=== PATIENT | male | born 1955 | race Caucasian/White ===

== ENCOUNTER 2020-01-09 04:08 | Emergency (ER) | payer OTHER ==
[2020-01-09] MEDS ORDERED: Albuterol/Ipratropium 3.0-0.5 MG/3 ML Neb Soln NEB ONE (04:47)
--- NOTE | 2020-01-09 04:47 | EDM.PDOC ---
<Max Gill - Last Filed: 01/09/20 07:14> ED HPI GENERAL MEDICAL PROBLEM - General Chief Complaint: Cardiovascular Problem Stated Complaint: SOB Time Seen by Provider: 01/09/20 04:36 Source of Information: Reports: Patient History Limitations: Reports: No Limitations - History of Present Illness INITIAL COMMENTS - FREE TEXT/NARRATIVE: This is a 64-year-old male. Back in July he had a cold along with his lasted for about 2 weeks and ever since that time he has been having episodes of being short of breath. He was given an inhaler by 1 of his doctors when he gets short of breath and uses it seems to help. He has not been running any particular fever. He does not notice any wheezing when he gets short of breath. And he feels like over the last week or so the shortness of breath is been getting worse. He is also had a cough since July that sometimes is productive. He has had no fever. This morning when he awoke around 3 AM he felt like he was really short of breath and he used his inhaler and then he starts coming to the ER he starts feeling better and is no longer short of breath. He does not have any history of smoking. He is not aware of having been exposed to the COVID virus he thinks in July he actually had the COVID virus though he was never tested. He does get short of breath he also has tightness in his chest. He says he does not sweat it does not go into his jaw or down his arm he is never nauseated or vomited from it. The patient has never been diagnosed with asthma or lung related problems. Patient arrived to the ER his pulse ox was 92 to 94% on room air. He did not appear to be in any distress or having a difficult time in breathing. Left Upper Chest Pain Score (Numeric/FACES): 1 - Related Data Allergies Allergy/AdvReac Type Severity Reaction Status Date / Time Penicillins Allergy Severe Hives Verified 01/09/20 04:21 Home Meds: Home Meds Albuterol [Proventil Neb Soln] 3 ml NEB Q6HR PRN 01/09/20 [History] Azithromycin [Zithromax] 250 mg PO DAILY #4 tab 01/09/20 [Rx] Past Medical History - Past Health History Medical/Surgical History: Denies Medical/Surgical History HEENT History: Reports: Impaired Vision Social & Family History - Family History Family Medical History: Noncontributory - Tobacco Use Smoking Status *Q: Never Smoker Second Hand Smoke Exposure: No - Caffeine Use Caffeine Use: Reports: Coffee - Recreational Drug Use Recreational Drug Use: No ED ROS GENERAL - Review of Systems Review Of Systems: See Below Constitutional: Denies: Fever, Chills HEENT: Reports: No Symptoms Respiratory: Reports: Shortness of Breath, Cough. Denies: Wheezing Cardiovascular: Reports: Chest Pain Endocrine: Reports: No Symptoms GI/Abdominal: Reports: No Symptoms : Reports: No Symptoms Musculoskeletal: Reports: No Symptoms Skin: Reports: No Symptoms Neurological: Reports: No Symptoms Psychiatric: Reports: No Symptoms Hematologic/Lymphatic: Reports: No Symptoms ED EXAM, GENERAL - Physical Exam Exam: See Below Exam Limited By: No Limitations General Appearance: Alert, WD/WN, No Apparent Distress Eye Exam: Bilateral Eye: Normal Inspection Ears: Normal External Exam, Normal Canal, Normal TMs Nose: Normal Inspection Throat/Mouth: Normal Inspection, Normal Lips, Normal Oropharynx, Normal Voice, No Airway Compromise Head: Normocephalic Neck: Supple Respiratory/Chest: No Respiratory Distress, Lungs Clear, Normal Breath Sounds. No: Crackles, Rales, Rhonchi, Wheezing Cardiovascular: Regular Rate, Rhythm, No Murmur GI/Abdominal: Soft Back Exam: Full Range of Motion Extremities: Normal Inspection, Normal Range of Motion. No: Pedal Edema Neurological: Alert, Oriented Psychiatric: Normal Affect, Normal Mood Skin Exam: Warm, Dry EKG INTERPRETATION EKG Date: 01/09/20 Time: 04:55 EKG Interpretation Comments: EKG shows normal sinus rhythm rate of [address] or T wave changes and no ischemia noted Course - Radiology Interpretation Free Text/Narrative:: X-ray shows diffuse densities in both of his lung duval the right upper is worse and they cannot rule out metastatic disease. - Re-Assessments/Exams Free Text/Narrative Re-Assessment/Exam: 01/09/20 07:06 To the patient and the regarding the x-ray results and the normal white count. We are waiting for the COVID test and a just came back as negative. We will go to do a CT scan of his chest with contrast thinking possibly this is metastatic disease rather than a pneumonia. The patient is not in acute distress when he sleeps his up pulse ox dropped down to 89 but when he is awake is 92-94. He does not look toxic or septic. Spoke to the patient regarding do a CT scan with contrast of his chest. We obviously know something is going on with his chest we just have to figure out exactly what it is. 01/09/20 07:[address] Lo regarding the patient and he will take over the patient's care. Departure - Departure Disposition: Home, Self-Care 01 Clinical Impression: Lung mass Pneumonia Qualifiers: Pneumonia type: due to unspecified organism Laterality: bilateral Lung location: unspecified part of lung Qualified Code(s): J18.9 - Pneumonia, unspecified organism Prescriptions: Azithromycin [Zithromax] 250 mg PO DAILY #4 tab Referrals: PCP,None [Primary Care Provider] - Lorri Fragoso PA-C [Physician Data Services Developer] - 3 Days Forms: ED Department Discharge Additional Instructions: Use the albuterol 2 puffs every 6 hours as needed for shortness of breath. Take zithromax daily until gone. You can get the prescription tomorrow. Follow up with Lorri Fragoso in our clinic. She will need to coordinate your further care. Please return if you are worse. Sepsis Event Note (ED) - Evaluation Sepsis Screening Result: No Definite Risk <Max Lo - Last Filed: 01/09/20 08:34> Course - Vital Signs Last Recorded V/S: Last Vital Signs Temp 97.1 F 01/09/20 04:16 Pulse 101 H 01/09/20 04:16 Resp 22 H 01/09/20 04:16 BP 138/75 01/09/20 04:16 Pulse Ox 92 L 01/09/20 05:00 - Orders/Labs/Meds Orders: Active Orders 24 hr Category Date Time Status EKG 12 Lead [EKG Documentation Completion] [RC] STAT Care 01/09/20 04:43 Active RT Aerosol Therapy [RC] ASDIRECTED Care 01/09/20 04:47 Active RT Post Treatment Assessment [RC] Click to Edit Care 01/09/20 08:24 Ordered RT Pre-Treatment Assessment [RC] Click to Edit Care 01/09/20 08:24 Ordered Albuterol [Proventil HFA] Med 01/09/20 08:24 Once See Dose Instructions INH ONETIME ONE Azithromycin [Zithromax] Med 01/09/20 08:24 Once 500 mg PO ONETIME ONE Sodium Chloride 0.9% [Saline Flush] Med 01/09/20 07:20 Active 10 ml FLUSH ONETIME PRN Medication Orders Sodium Chloride (Saline Flush) 10 ml FLUSH ONETIME PRN PRN Reason: Keep Vein Open Last Admin: 01/09/20 07:47 Dose: 10 ml Documented by: MARYAN Labs: Laboratory Tests 01/09/20 01/09/20 01/09/20 Range/Units 04:58 04:58 04:58 WBC 8.07 (4.23-9.07) K/mm3 RBC 5.31 (4.63-6.08) M/mm3 Hgb 15.1 (13.7-17.5) gm/dl Hct 45.2 (40.1-51.0) % MCV 85.1 (79.0-92.2) fl MCH 28.4 (25.7-32.2) pg MCHC 33.4 (32.2-35.5) g/dl RDW Std Deviation 43.5 (35.1-43.9) fL Plt Count 204 (163-337) K/mm3 MPV 9.2 L (9.4-12.3) fl Neut % (Auto) 71.4 H (34.0-67.9) % Lymph % (Auto) 15.5 L (21.8-53.1) % Lamb % (Auto) 9.5 (5.3-12.2) % Eos % (Auto) 3.3 (0.8-7.0) Baso % (Auto) 0.2 (0.1-1.2) % Neut # (Auto) 5.75 H (1.78-5.38) K/mm3 Lymph # (Auto) 1.25 L (1.32-3.57) K/mm3 Lamb # (Auto) 0.77 (0.30-0.82) K/mm3 Eos # (Auto) 0.27 (0.04-0.54) K/mm3 Baso # (Auto) 0.02 (0.01-0.08) K/mm3 Sodium 142 (136-145) mEq/L Potassium 3.8 (3.5-5.1) mEq/L Chloride 105 (98-107) mEq/L Carbon Dioxide 26 (21-32) mEq/L Anion Gap 14.8 (5-15) BUN 23 H (7-18) mg/dL Creatinine 1.3 (0.7-1.3) mg/dL Est Cr Clr Drug Dosing 60.83 mL/min Estimated GFR (MDRD) 56 (>60) mL/min BUN/Creatinine Ratio 17.7 (14-18) Glucose 98 (80-115) mg/dL Calcium 8.9 (8.5-10.1) mg/dL Total Bilirubin 0.5 (0.2-1.0) mg/dL AST 32 (15-37) U/L ALT 39 (16-63) U/L Alkaline Phosphatase 134 H (46-116) U/L Troponin I < 0.017 (0.00-0.056) ng/mL NT-Pro-B Natriuret Pep 12 (0-125) pg/mL Total Protein 6.6 (6.4-8.2) g/dl Albumin 3.2 L (3.4-5.0) g/dl Globulin 3.4 gm/dL Albumin/Globulin Ratio 0.9 L (1-2) SARS Virus RNA (PCR) (NEGATIVE) 01/09/20 Range/Units 05:49 WBC (4.23-9.07) K/mm3 RBC (4.63-6.08) M/mm3 Hgb (13.7-17.5) gm/dl Hct (40.1-51.0) % MCV (79.0-92.2) fl MCH (25.7-32.2) pg MCHC (32.2-35.5) g/dl RDW Std Deviation (35.1-43.9) fL Plt Count (163-337) K/mm3 MPV (9.4-12.3) fl Neut % (Auto) (34.0-67.9) % Lymph % (Auto) (21.8-53.1) % Lamb % (Auto) (5.3-12.2) % Eos % (Auto) (0.8-7.0) Baso % (Auto) (0.1-1.2) % Neut # (Auto) (1.78-5.38) K/mm3 Lymph # (Auto) (1.32-3.57) K/mm3 Lamb # (Auto) (0.30-0.82) K/mm3 Eos # (Auto) (0.04-0.54) K/mm3 Baso # (Auto) (0.01-0.08) K/mm3 Sodium (136-145) mEq/L Potassium (3.5-5.1) mEq/L Chloride (98-107) mEq/L Carbon Dioxide (21-32) mEq/L Anion Gap (5-15) BUN (7-18) mg/dL Creatinine (0.7-1.3) mg/dL Est Cr Clr Drug Dosing mL/min Estimated GFR (MDRD) (>60) mL/min BUN/Creatinine Ratio (14-18) Glucose (80-115) mg/dL Calcium (8.5-10.1) mg/dL Total Bilirubin (0.2-1.0) mg/dL AST (15-37) U/L ALT (16-63) U/L Alkaline Phosphatase (46-116) U/L Troponin I (0.00-0.056) ng/mL NT-Pro-B Natriuret Pep (0-125) pg/mL Total Protein (6.4-8.2) g/dl Albumin (3.4-5.0) g/dl Globulin gm/dL Albumin/Globulin Ratio (1-2) SARS Virus RNA (PCR) Negative (NEGATIVE) Meds: Medications Generic Name Dose Route Start Last Admin Trade Name Halie PRN Reason Stop Dose Admin Sodium Chloride 10 ml 01/09/20 07:20 01/09/20 07:47 Saline Flush FLUSH 10 ml ONETIME PRN Administration Keep Vein Open Discontinued Medications Generic Name Dose Route Start Last Admin Trade Name Freq PRN Reason Stop Dose Admin Albuterol/Ipratropium 3 ml 01/09/20 04:47 01/09/20 05:00 Duoneb 3.0-0.5 Mg/3 Ml NEB 01/09/20 04:48 3 ml ONETIME ONE Administration Iopamidol 100 ml 01/09/20 07:20 01/09/20 07:47 Isovue-300 (61%) IVPUSH 01/09/20 07:21 100 ml ONETIME ONE Administration - Re-Assessments/Exams Free Text/Narrative Re-Assessment/Exam: 01/09/20 08:[address] Gill. The CT shows findings which are felt compatible with right sided lung mass extending into the mediastinum as well as numerous nodular areas of metastasis throughout both lungs and possible lymphangitic spread of metastasis. Other areas of consolidation within the right upper and right lower lung which could represent superimposed pneumonia upon the metastatic disease. Small indeterminate lesion within the right kidney. I let the patient know. I will have him see one of our providers to coordinate care. I will also give him some albuterol and zithromax for the pneumonia. Departure - Departure Time of Disposition: 08:30 Condition: Good Sepsis Event Note (ED) - Focused Exam Vital Signs: Vital Signs Temp Pulse Resp BP Pulse Ox Pulse Ox 01/09/20 05:00 92 L 01/09/20 04:16 97.1 F 101 H 22 H 138/75 92 L - My Orders Last 24 Hours: My Active Orders 01/09/20 08:24 RT Post Treatment Assessment [RC] Click to Edit RT Pre-Treatment Assessment [RC] Click to Edit Albuterol [Proventil HFA] See Dose Instructions INH ONETIME ONE Azithromycin [Zithromax] 500 mg PO ONETIME ONE - Assessment/Plan Last 24 Hours: My Active Orders 01/09/20 08:24 RT Post Treatment Assessment [RC] Click to Edit RT Pre-Treatment Assessment [RC] Click to Edit Albuterol [Proventil HFA] See Dose Instructions INH ONETIME ONE Azithromycin [Zithromax] 500 mg PO ONETIME ONE
--- NOTE | 2020-01-09 05:55 | CR ---
Chest: 2 views of the chest were obtained. Comparison: No prior chest images available. Diffuse increased density throughout both sides of the chest. More consolidation is noted within the right upper lung. Heart size and mediastinum are normal. Bony structures are unremarkable. Impression: 1. Diffuse increased density on both sides of the chest, worse within the right upper chest. Difficult to exclude metastatic disease. Findings may also represent diffuse bronchopneumonia with more consolidation of alveolar pneumonia within the right upper lung. Atypical infections are also within the differential. Diagnostic code #3 This report was dictated in MDT
[2020-01-09] MEDS ORDERED: Iopamidol 612 MG/ML 100 ML Bottle IVPUSH ONE (07:20)
[2020-01-09] MEDS ORDERED: Sodium Chloride 0.9% 10 ML Syringe FLUSH PRN (07:20)
--- NOTE | 2020-01-09 08:09 | CT ---
CT chest Technique: Multiple axial sections through the chest were obtained. Intravenous contrast was utilized. Previous chest x-ray performed earlier on the same day (5:03 AM). Findings: Right-sided parenchymal density is noted. This appears to extend into the mediastinum and is most likely neoplastic rather than infectious. Calcified lymph nodes are seen within the mediastinum. Innumerable nodular masses are seen within the chest. Additional consolidation is noted within the posterior right upper lung as well as right lower lung. Difficult to exclude superimposed pneumonia. Diffuse interstitial changes are seen most likely representing lymphangitic spread of metastasis. No pleural effusions are seen. No pericardial thickening is noted. Visualized upper abdominal structures shows a low density lesion partially visualized within the right kidney which does not have Hounsfield unit measurements of a simple cyst. Finding measures about 1.3 cm. Differential includes small renal mass versus slightly hemorrhagic cyst. Other visualized upper abdominal structures are unremarkable. Impression: 1. Findings which are felt compatible with right-sided lung mass extending into the mediastinum as well as numerous nodular areas of metastasis throughout both lungs and possible lymphangitic spread of metastasis. 2. Other areas of consolidation within the right upper and right lower lung which could represent superimposed pneumonia upon the metastatic disease. 3. Small indeterminate lesion within the right kidney. Diagnostic code #9 This report was dictated in MDT
[2020-01-09] MEDS ORDERED: Albuterol 6.7 GM Inhaler INH ONE (08:24)
[2020-01-09] MEDS ORDERED: Azithromycin 250 MG Tab PO ONE (08:24)
== END 2020-01-09 08:55 | disposition home or self-care (01) ==
LOC: JD.ED 04:08
DX: J18.9 Pneumonia, unspecified organism (principal); R91.8 Other nonspecific abnormal finding of lung field; Z20.828 Contact with and (suspected) exposure to other viral communicable diseases; Z88.0 Allergy status to penicillin
CPT/HCPCS: 36415; 71046; 71260; 80053; 83880; 84484; 85025; 87635; 93005; 94640; 99285; A9270; Q9967; 93010; 99283; J7620-GY; U0002

== ENCOUNTER 2020-03-25 14:33 | Emergency (ER) | payer OTHER ==
[2020-03-25] MEDS ORDERED: Sodium Chloride 0.9% 1,000 ML IV STA (16:05)
[2020-03-25] MEDS ORDERED: Sodium Chloride 0.9% 100 ML IV ONE (17:21)
[2020-03-25] MEDS ORDERED: Iopamidol 755 Mg/ML 100 ML Bottle IVPUSH ONE (17:21)
--- NOTE | 2020-03-25 17:34 | EDM.PDOC ---
ED HPI GENERAL MEDICAL PROBLEM - General Chief Complaint: Respiratory Problem Stated Complaint: SOB/LUNG CONDITION UNABLE TO WEAR A MASK Time Seen by Provider: 03/25/20 15:06 Source of Information: Reports: Patient History Limitations: Reports: No Limitations - History of Present Illness INITIAL COMMENTS - FREE TEXT/NARRATIVE: Patient is a 64-year-old male presenting to the emergency department with complaints of shortness of breath is well as increased mucus production over the course of the last few weeks. He was seen in this emergency department with similar complaints back in December of this year and was diagnosed with a right- sided lung mass extending into his mediastinum. 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 He has not seen an oncologist and states he does not want chemotherapy treatment for this. He has been seeing a homeopathic provider to treat his underlying cancer. He has an inhaler that he was given back in July of this year when he had episodes of shortness of breath. States he has been using that a number times a day. It does work for a brief period but then the shortness of breath returns. He states that he feels that his lungs are fine, however the bronchioles in the center of his chest are "closed". He denies any symptoms of fever, chills, nasal congestion, nausea, vomiting, or diarrhea. He has had no known sick contacts. He does not have a primary care provider. - Related Data Allergies Allergy/AdvReac Type Severity Reaction Status Date / Time Penicillins Allergy Severe Hives Verified 03/25/20 14:43 Home Meds: Home Meds Albuterol [Proventil Neb Soln] 3 ml INH Q6HR PRN 01/09/20 [History] Albuterol [Ventolin HFA] 2 puff .XX Q4H PRN #1 inhaler 03/25/20 [Rx] Azithromycin 250 mg PO ASDIRECTED 5 Days #6 tablet 03/25/20 [Rx] Cholecalciferol (Vitamin D3) [Vitamin D3] 2 ml PO BID 03/25/20 [History] L.acidoph,Paracasei, B.lactis [Probiotic] 1 cap PO DAILY 03/25/20 [History] Past Medical History - Past Health History Medical/Surgical History: Denies Medical/Surgical History HEENT History: Reports: Impaired Vision Respiratory History: Reports: Other (See Below) Other Respiratory History: seasonal allergies Oncologic (Cancer) History: Reports: Other (See Below) Other Oncologic History: high estrogen breast cancer - Infectious Disease History Infectious Disease History: Reports: Chicken Pox - Past Surgical History HEENT Surgical History: Reports: Naso-Sinus Surgery Social & Family History - Family History Family Medical History: Noncontributory - Tobacco Use Smoking Status *Q: Never Smoker Second Hand Smoke Exposure: No - Caffeine Use Caffeine Use: Reports: Coffee - Recreational Drug Use Recreational Drug Use: No ED ROS GENERAL - Review of Systems Review Of Systems: See Below Constitutional: Reports: No Symptoms. Denies: Fever, Chills, Weakness HEENT: Reports: No Symptoms Respiratory: Reports: Shortness of Breath, Cough Cardiovascular: Reports: No Symptoms Endocrine: Reports: No Symptoms GI/Abdominal: Reports: No Symptoms : Reports: No Symptoms Musculoskeletal: Reports: No Symptoms Skin: Reports: No Symptoms Neurological: Reports: No Symptoms Psychiatric: Reports: No Symptoms Hematologic/Lymphatic: Reports: No Symptoms Immunologic: Reports: No Symptoms ED EXAM, GENERAL - Physical Exam Exam: See Below Exam Limited By: No Limitations General Appearance: Alert, WD/WN, No Apparent Distress, Cachetic Respiratory/Chest: No Respiratory Distress, Lungs Clear, Normal Breath Sounds, No Accessory Muscle Use, Chest Non-Tender Cardiovascular: Normal Peripheral Pulses, Regular Rate, Rhythm, No Edema, No Gallop, No JVD, No Murmur, No Rub GI/Abdominal: Normal Bowel Sounds, Soft, Non-Tender, No Organomegaly, No Distention, No Abnormal Bruit, No Mass Neurological: Alert, Oriented, CN II-XII Intact, Normal Cognition, Normal Gait, Normal Reflexes, No Motor/Sensory Deficits Psychiatric: Normal Affect, Normal Mood Skin Exam: Warm, Dry, Intact, Normal Color, No Rash Course - Vital Signs Last Recorded V/S: Last Vital Signs Temp 97.2 F 03/25/20 14:40 Pulse 100 03/25/20 14:40 Resp 18 03/25/20 14:40 BP 135/93 H 03/25/20 14:40 Pulse Ox 88 L 03/25/20 14:40 - Orders/Labs/Meds Orders: Active Orders 24 hr Category Date Time Status EKG Documentation Completion [RC] STAT Care 03/25/20 15:20 Active Chest PE [Ang Chest] [CT] Stat Exams 03/25/20 16:04 Taken CORONAVIRUS COVID-19 PCR PHL Routine Lab 03/25/20 19:02 Ordered Sodium Chloride 0.9% [Normal Saline] 1,000 ml Med 03/25/20 16:05 Active IV NOW Medication Orders Sodium Chloride (Normal Saline) 1,000 mls @ 150 mls/hr IV NOW STA Stop: 03/25/20 22:44 Last Admin: 03/25/20 16:26 Dose: 150 mls/hr Documented by: NAMRubén Labs: Laboratory Tests 03/25/20 03/25/20 03/25/20 Range/Units 15:33 15:33 15:33 WBC 8.79 (4.23-9.07) K/mm3 RBC 5.67 (4.63-6.08) M/mm3 Hgb 16.2 (13.7-17.5) gm/dl Hct 48.8 (40.1-51.0) % MCV 86.1 (79.0-92.2) fl MCH 28.6 (25.7-32.2) pg MCHC 33.2 (32.2-35.5) g/dl RDW Std Deviation 45.8 H (35.1-43.9) fL Plt Count 235 (163-337) K/mm3 MPV 9.0 L (9.4-12.3) fl Neut % (Auto) 72.3 H (34.0-67.9) % Lymph % (Auto) 14.3 L (21.8-53.1) % [place] % (Auto) 8.8 (5.3-12.2) % Eos % (Auto) 4.1 (0.8-7.0) Baso % (Auto) 0.3 (0.1-1.2) % Neut # (Auto) 6.35 H (1.78-5.38) K/mm3 Lymph # (Auto) 1.26 L (1.32-3.57) K/mm3 [place] # (Auto) 0.77 (0.30-0.82) K/mm3 Eos # (Auto) 0.36 (0.04-0.54) K/mm3 Baso # (Auto) 0.03 (0.01-0.08) K/mm3 D-Dimer, Quantitative 2.21 H (0.19-0.50) mg/L Sodium 142 (136-145) mEq/L Potassium 4.3 (3.5-5.1) mEq/L Chloride 105 (98-107) mEq/L Carbon Dioxide 25 (21-32) mEq/L Anion Gap 16.3 H (5-15) BUN 21 H (7-18) mg/dL Creatinine 1.3 (0.7-1.3) mg/dL Est Cr Clr Drug Dosing 58.97 mL/min Estimated GFR (MDRD) 56 (>60) mL/min BUN/Creatinine Ratio 16.2 (14-18) Glucose 103 (80-115) mg/dL Calcium 9.6 (8.5-10.1) mg/dL Total Bilirubin 0.5 (0.2-1.0) mg/dL AST 21 (15-37) U/L ALT 37 (16-63) U/L Alkaline Phosphatase 137 H (46-116) U/L C-Reactive Protein 0.3 (<1.0) mg/dL Total Protein 6.8 (6.4-8.2) g/dl Albumin 3.5 (3.4-5.0) g/dl Globulin 3.3 gm/dL Albumin/Globulin Ratio 1.1 (1-2) Meds: Medications Generic Name Dose Route Start Last Admin Trade Name Freq PRN Reason Stop Dose Admin Sodium Chloride 1,000 mls @ 150 mls/hr 03/25/20 16:05 03/25/20 16:26 Normal Saline IV 03/25/20 22:44 150 mls/hr NOW STA Administration Discontinued Medications Generic Name Dose Route Start Last Admin Trade Name Freq PRN Reason Stop Dose Admin Sodium Chloride 100 mls @ 4 mls/sec 03/25/20 17:21 Normal Saline IV 03/25/20 17:22 ONETIME ONE Iopamidol 100 ml 03/25/20 17:21 Isovue-370 (76%) IVPUSH 03/25/20 17:22 ONETIME ONE - Re-Assessments/Exams Free Text/Narrative Re-Assessment/Exam: 03/25/20 18:54 Hematology was significant for a d-dimer elevated at 2.21, anion gap 16.3, BUN 21. CT angiogram of the chest was negative for pulmonary emboli. 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 Possible superimposed pneumonia on the right lung. This is a new finding when compared to CT chest with contrast completed on 01/09/2020 at 7:13 AM. Oxygen saturations have maintained 92-94% on RA. Discussed these findings with the patient. It is my suspicion that his chronic, worsening shortness of breath is due to his metastatic lung disease, however we will treat for a possible superimposed pneumonia with azithromycin. I have also ordered a coronavirus test. I will also refill his albuterol inhaler and he may continue to use this as needed. Did discuss with him that is essential that he establish care with a primary care provider and or oncologist. Even if he does not want chemotherapy treatment, they can discuss his options to help improve his quality of life. He verbalized understanding of this. I will send a referral to Dr. Dionicio Wilcox MD. Discharge instructions as documented. Departure - Departure Time of Disposition: 18:56 Disposition: Home, Self-Care 01 Condition: Good Clinical Impression: Lung mass Pneumonia Qualifiers: Pneumonia type: due to unspecified organism Laterality: bilateral Lung location: unspecified part of lung Qualified Code(s): J18.9 - Pneumonia, unspecified organism - Discharge Information *PRESCRIPTION DRUG MONITORING PROGRAM REVIEWED*: No *COPY OF PRESCRIPTION DRUG MONITORING REPORT IN PATIENT DESTINEY: No Prescriptions: Azithromycin 250 mg PO ASDIRECTED 5 Days #6 tablet Albuterol [Ventolin HFA] 2 puff .XX Q4H PRN #1 inhaler PRN Reason: Shortness Of Breath Instructions: Lung Mass, Community-Acquired Pneumonia, Adult, [id number] Referrals: Dionicio Robert MD [Physician] - Forms: ED Department Discharge Additional Instructions: You were seen in the emergency department today for progressively worsening of shortness of breath. Your work-up included blood work as well as a CT scan of your chest. Results of the CT scan do show a number of masses within your lungs as well as a possible superimposed pneumonia in your right lung. As we discussed, shortness of breath is likely related to the masses within your lungs. It is essential that you establish care with a primary care provider and see oncology to discuss treatment options in order to improve your quality of life. You have been started on an antibiotic, azithromycin for the treatment of possible pneumonia. I have also sent a refill of your albuterol inhaler. You take these medications as prescribed. A coronavirus test has been completed today and you will receive notification of these results when they are available. A referral has been sent to Dr. Dionicio Wilcox, internal medicine. Recommend calling Friday at the number listed below to set up an appointment with him. Return to the ER for any new or worsening symptoms of concern. Sepsis Event Note (ED) - Evaluation Sepsis Screening Result: No Definite Risk - Focused Exam Vital Signs: Vital Signs Temp Pulse Resp BP Pulse Ox 03/25/20 14:40 97.2 F 100 18 135/93 H 88 L - My Orders Last 24 Hours: My Active Orders 03/25/20 15:20 EKG Documentation Completion [RC] STAT 03/25/20 16:04 Chest PE [Ang Chest] [CT] Stat 03/25/20 16:05 Sodium Chloride 0.9% [Normal Saline] 1,000 ml IV NOW 03/25/20 19:02 CORONAVIRUS COVID-19 PCR PHL Routine - Assessment/Plan Last 24 Hours: My Active Orders 03/25/20 15:20 EKG Documentation Completion [RC] STAT 03/25/20 16:04 Chest PE [Ang Chest] [CT] Stat 03/25/20 16:05 Sodium Chloride 0.9% [Normal Saline] 1,000 ml IV NOW 03/25/20 19:02 CORONAVIRUS COVID-19 PCR PHL Routine
--- NOTE | 2020-04-17 15:20 | CT ---
"PROCEDURE INFORMATION: Exam: CT Angiography Chest With Contrast Exam date and time: 03/25/2020 5:38 PM Age: 64 years old Clinical indication: Abnormal findings; Abnormal diagnostic tests; Shortness of breath; Patient HX: SOB, elevated d-dimer, metastatic disease TECHNIQUE: Imaging protocol: Computed tomographic angiography of the chest with intravenous contrast. 3D rendering (Not supervised by radiologist): MIP and/or 3D reconstructed images were created by the technologist. Radiation optimization: All CT scans at this facility use at least one of these dose optimization techniques: automated exposure control; mA and/or kV adjustment per patient size (includes targeted exams where dose is matched to clinical indication); or iterative reconstruction. COMPARISON: CT Chest w Cont 01/09/2020 7:13 AM FINDINGS: Pulmonary arteries: Normal. No pulmonary emboli. Aorta: Unremarkable. No aortic aneurysm. No aortic dissection. Lungs: Multifocal bilateral lung masses of mildly varying size, the individual nodules measuring up to approximately 1.5 cm. Confluent nodules in right upper lobe and lower lobes, with or without consolidation. Nodular lymphangitic right upper lobe disease.There is moderate right bronchial interstitial thickening. Pleural space: Unremarkable. No pneumothorax. No pleural effusion. Heart: There are atherosclerotic calcifications inclusive of the coronary arteries. Heart is normal in size. No pericardial effusion. Lymph nodes: No enlarged supraclavicular, axillary, mediastinal or hilar lymph nodes are seen. There is calcified granulomatous disease of the intrathoracic lymph nodes. Stomach and bowel: There is a small hiatal hernia. Questionable edema of the distal esophageal wall to indicate esophagitis. Bones/joints: There is bilateral moderate sternoclavicular arthritis. Ill- defined sclerosis within several ribs, for example the posterior left 10th rib . This is unchanged. JOCELYN [id number] | Final Radiology Report CONFIDENTIALITY STATEMENT This report is intended only for use by the referring physician, and only in accordance with law. If you received this in error, call [phone]. Page 2 of 2 Soft tissues: Unremarkable. IMPRESSION: 1. No pulmonary embolism. New 2. Findings within the lungs consistent with pulmonary metastases and possible right upper lobe lymphangitic carcinomatosis. 3. Possible superimposed pneumonia right lung and left lung base. This is a new finding when compared to CT Chest w Cont 01/09/2020 7:13 AM. 4. Possible esophagitis and small hiatal hernia. Thank you for allowing us to participate in the care of your patient. Dictated and Authenticated by: Ronan Handley MD 04/17/2020 4:07 PM Central Time ([place] & [place]) COLT"
== END 2020-03-25 19:32 | disposition home or self-care (01) ==
LOC: JD.ED 14:33
DX: J18.9 Pneumonia, unspecified organism (principal); R91.8 Other nonspecific abnormal finding of lung field; Z88.0 Allergy status to penicillin
CPT/HCPCS: 36415; 71275; 80053; 85025; 85379; 86140; 93005; 96360; 96361; 99285; J7030; 93010; 99284

== ENCOUNTER 2020-04-04 07:39 | Emergency (ER) | payer OTHER ==
--- NOTE | 2020-04-04 08:11 | EDM.PDOC ---
ED HPI GENERAL MEDICAL PROBLEM - General Chief Complaint: Respiratory Problem Stated Complaint: SOB Time Seen by Provider: 04/04/20 08:11 Source of Information: Reports: Patient History Limitations: Reports: No Limitations - History of Present Illness INITIAL COMMENTS - FREE TEXT/NARRATIVE: 65-year-old male presents to the ED due to increasing dyspnea on minimal exertion. Patient was diagnosed with a right lung mass in August of this year. He opted for no treatment since it involved the hilum and mediastinum of the lung. The disease process has progressed significantly without any treatment in the last several months. He was seen 10 days ago through the ED and due to the possibility of superimposed pneumonia was placed on a Z-Francis. Dr. Wilcox has recently added Spiriva to his treatment as well. He states he has been sleeping in his easy chair for the last 2 weeks due to dyspnea or orthopnea when lying down. Denies any cough or sputum production. In particular no hemoptysis. He does feel some pressure in his throat and neck but no real difficulty swallowing. Occasional coughing with swallowing. States his weight has been stable. . He does appear quite thin however. He is a never smoker. He opted for no oncology involvement to my knowledge and has been seeing a fan balancer and being treated with vitamins etc. O2 sats on upon arrival in the ED this morning were 88% he was placed on 2 L/min by nasal cannula. He denies any nausea vomiting or diarrhea. Questionable fever last night without chills or rigors. CT scan of the chest done March 25 revealed bilateral diffuse lymphangitic carcinomatosis. There is some nodularity to the carcinoma as well. It involves all lobes of the lung particularly right upper. Onset: Gradual, Other (Social right lung mass identified in August of this year at [facility]. CT done here 10 days ago revealed marked progression of tumor throughout the right lung) Duration: Week(s):, Chronic, Getting Worse Location: Reports: Chest (Increased dyspnea on minimal exertion with orthopnea.) Quality: Reports: Other Severity: Severe (Dyspnea) Improves with: Reports: Rest Worsens with: Reports: Movement (Exertion even walking a short distance like) Context: Reports: Other (Known right lung cancer). Denies: Activity ( 10 to 15 feet will make him short of breath.), Exercise, Lifting, Sick Contact, Trauma Associated Symptoms: Reports: Cough, Malaise, Shortness of Breath, Other (Decreased appetite. No true pain with swallowing. Recognize discomfort however with swallowing.). Denies: Confusion, Chest Pain, cough w sputum (Occasional but nonproductive.), Diaphoresis, Fever/Chills, Headaches, Loss of Appetite, Nausea/Vomiting, Rash, Seizure, Syncope Treatments RN PLASTIC SURGERY: Reports: Other (see below) - Related Data Allergies Allergy/AdvReac Type Severity Reaction Status Date / Time Penicillins Allergy Severe Hives Verified 04/04/20 08:06 Home Meds: Home Meds Albuterol [Proventil Neb Soln] 3 ml INH Q6HR PRN 01/09/20 [History] Albuterol [Ventolin HFA] 2 puff .XX Q4H PRN #1 inhaler 03/25/20 [Rx] Cholecalciferol (Vitamin D3) [Vitamin D3] 2 ml PO BID 03/25/20 [History] L.acidoph,Paracasei, B.lactis [Probiotic] 1 cap PO DAILY 03/25/20 [History] Albuterol/Ipratropium [DuoNeb 3.0-0.5 MG/3 ML] 3 ml NEB Q8H PRN #90 neb 04/04/20 [Rx] Ascorbic Acid [Vitamin C] 500 mg PO DAILY 04/04/20 [History] Past Medical History - Past Health History Medical/Surgical History: Denies Medical/Surgical History HEENT History: Reports: Impaired Vision Respiratory History: Reports: Other (See Below) Other Respiratory History: seasonal allergies Oncologic (Cancer) History: Reports: Lung, Other (See Below) Other Oncologic History: high estrogen breast cancer - Infectious Disease History Infectious Disease History: Reports: Chicken Pox - Past Surgical History HEENT Surgical History: Reports: Naso-Sinus Surgery Social & Family History - Family History Family Medical History: Noncontributory - Tobacco Use Tobacco Use Status *Q: Never Tobacco User - Caffeine Use Caffeine Use: Reports: Coffee - Recreational Drug Use Recreational Drug Use: No - Living Situation & Occupation Living situation: Reports: Occupation: Employed ED ROS GENERAL - Review of Systems Review Of Systems: See Below Constitutional: Reports: Fever, Malaise, Weakness (Questionable fever last evening.), Fatigue, Decreased Appetite, Weight Loss. Denies: Chills HEENT: Reports: Glasses Respiratory: Reports: Shortness of Breath, Wheezing, Cough. Denies: Pleuritic Chest Pain, Sputum (Usually nonproductive.), Hemoptysis Cardiovascular: Reports: Dyspnea on Exertion. Denies: Chest Pain, Blood Pressure Problem, Claudication, Edema, Lightheadedness, Orthopnea Endocrine: Reports: Fatigue GI/Abdominal: Reports: Decreased Appetite. Denies: Constipation, Diarrhea : Reports: No Symptoms Musculoskeletal: Reports: Shoulder Pain (Occasional problems with low back pain and left shoulder pain.), Back Pain Skin: Reports: No Symptoms Neurological: Reports: No Symptoms Psychiatric: Reports: No Symptoms Hematologic/Lymphatic: Reports: No Symptoms Immunologic: Reports: No Symptoms ED EXAM, GENERAL - Physical Exam Exam: See Below Exam Limited By: No Limitations General Appearance: Alert, WD/WN, Mild Distress, Thin, Other (Does have started him on oxygen at 2 L/min by nasal cannula. This maintains O2 sats of 92 to 94%.) Eye Exam: Bilateral Eye: Normal Inspection (No scleral icterus or blepharal pallor.), PERRL Throat/Mouth: Other (Tongue is mildly dry and coated.) Head: Atraumatic, Normocephalic, Other (No outward signs of any head or facial trauma.) Neck: Normal Inspection, Supple, Non-Tender, Full Range of Motion. No: Lymphadenopathy (L), Lymphadenopathy (R) Respiratory/Chest: No Respiratory Distress, No Accessory Muscle Use, Rales (Fine rales particularly throughout the right posterior lung base.). No: Lungs Clear, Normal Breath Sounds, Rhonchi ( There is a few also in the left lower lung base.), Wheezing Cardiovascular: Normal Peripheral Pulses, Regular Rate, Rhythm, No Edema, No Gallop, No Murmur, No Rub Peripheral Pulses: 2+: Posterior Tibial (L), Posterior Tibial (R), Dorsalis Pedis (L), Dorsalis Pedis (R), 3+: Carotid (L), Carotid (R) GI/Abdominal: Normal Bowel Sounds, Soft, Non-Tender, No Organomegaly, No Abnormal Bruit, No Mass, Pelvis Stable Back Exam: Normal Inspection, Full Range of Motion. No: CVA Tenderness (L), CVA Tenderness (R) Extremities: Normal Inspection, Normal Range of Motion, Non-Tender, No Pedal Edema Neurological: Alert, Oriented, CN II-XII Intact, Normal Cognition Psychiatric: Normal Affect, Normal Mood Skin Exam: Warm, Dry, Intact, Normal Color, No Rash Course - Vital Signs Last Recorded V/S: Last Vital Signs Temp 37.0 C 04/04/20 08:03 Pulse 101 H 04/04/20 08:03 Resp 16 04/04/20 08:03 BP 128/81 04/04/20 08:03 Pulse Ox 91 L 04/04/20 09:31 - Orders/Labs/Meds Orders: Active Orders 24 hr Category Date Time Status Chest 2V [CR] Stat Exams 04/04/20 08:48 Taken Labs: Laboratory Tests 04/04/20 04/04/20 04/04/20 Range/Units 09:02 09:02 09:02 WBC 9.16 H (4.23-9.07) K/mm3 RBC 5.85 (4.63-6.08) M/mm3 Hgb 16.5 (13.7-17.5) gm/dl Hct 49.8 (40.1-51.0) % MCV 85.1 (79.0-92.2) fl MCH 28.2 (25.7-32.2) pg MCHC 33.1 (32.2-35.5) g/dl RDW Std Deviation 44.5 H (35.1-43.9) fL Plt Count 263 (163-337) K/mm3 MPV 9.1 L (9.4-12.3) fl Neut % (Auto) 83.0 H (34.0-67.9) % Lymph % (Auto) 7.0 L (21.8-53.1) % [place] % (Auto) 6.9 (5.3-12.2) % Eos % (Auto) 2.7 (0.8-7.0) Baso % (Auto) 0.2 (0.1-1.2) % Neut # (Auto) 7.60 H (1.78-5.38) K/mm3 Lymph # (Auto) 0.64 L (1.32-3.57) K/mm3 [place] # (Auto) 0.63 (0.30-0.82) K/mm3 Eos # (Auto) 0.25 (0.04-0.54) K/mm3 Baso # (Auto) 0.02 (0.01-0.08) K/mm3 Manual Slide Review Normal smear Puncture Site ABG pH (7.35-7.45) ABG pCO2 (35.0-45.0) mmHg ABG pO2 (80.0-100.0) mmHg ABG HCO3 (22.0-26.0) meq/L ABG O2 Saturation (96.0-97.0) % ABG Base Excess (-2-2.0) Ronan Test A-a Gradient mmHg O2 Delivery Device FiO2 (21.00-100.00) % Sodium 137 (136-145) mEq/L Potassium 4.3 (3.5-5.1) mEq/L Chloride 102 (98-107) mEq/L Carbon Dioxide 26 (21-32) mEq/L Anion Gap 13.3 (5-15) BUN 19 H (7-18) mg/dL Creatinine 1.0 (0.7-1.3) mg/dL Est Cr Clr Drug Dosing 75.67 mL/min Estimated GFR (MDRD) > 60 (>60) mL/min BUN/Creatinine Ratio 19.0 H (14-18) Glucose 111 (80-115) mg/dL Calcium 9.6 (8.5-10.1) mg/dL Magnesium 2.1 (1.8-2.4) mg/dl Total Bilirubin 0.4 (0.2-1.0) mg/dL AST 24 (15-37) U/L ALT 42 (16-63) U/L Alkaline Phosphatase 144 H (46-116) U/L C-Reactive Protein 0.8 (<1.0) mg/dL NT-Pro-B Natriuret Pep 14 (0-125) pg/mL Total Protein 6.9 (6.4-8.2) g/dl Albumin 3.4 (3.4-5.0) g/dl Globulin 3.5 gm/dL Albumin/Globulin Ratio 1.0 (1-2) 04/04/20 Range/Units 09:38 WBC (4.23-9.07) K/mm3 RBC (4.63-6.08) M/mm3 Hgb (13.7-17.5) gm/dl Hct (40.1-51.0) % MCV (79.0-92.2) fl MCH (25.7-32.2) pg MCHC (32.2-35.5) g/dl RDW Std Deviation (35.1-43.9) fL Plt Count (163-337) K/mm3 MPV (9.4-12.3) fl Neut % (Auto) (34.0-67.9) % Lymph % (Auto) (21.8-53.1) % [place] % (Auto) (5.3-12.2) % Eos % (Auto) (0.8-7.0) Baso % (Auto) (0.1-1.2) % Neut # (Auto) (1.78-5.38) K/mm3 Lymph # (Auto) (1.32-3.57) K/mm3 [place] # (Auto) (0.30-0.82) K/mm3 Eos # (Auto) (0.04-0.54) K/mm3 Baso # (Auto) (0.01-0.08) K/mm3 Manual Slide Review Puncture Site Lt radial ABG pH 7.43 (7.35-7.45) ABG pCO2 35.8 (35.0-45.0) mmHg ABG pO2 62.0 L (80.0-100.0) mmHg ABG HCO3 23.4 (22.0-26.0) meq/L ABG O2 Saturation 92.4 L (96.0-97.0) % ABG Base Excess 0.1 (-2-2.0) Ronan Test Positive A-a Gradient 43 mmHg O2 Delivery Device Room air FiO2 21.00 (21.00-100.00) % Sodium (136-145) mEq/L Potassium (3.5-5.1) mEq/L Chloride (98-107) mEq/L Carbon Dioxide (21-32) mEq/L Anion Gap (5-15) BUN (7-18) mg/dL Creatinine (0.7-1.3) mg/dL Est Cr Clr Drug Dosing mL/min Estimated GFR (MDRD) (>60) mL/min BUN/Creatinine Ratio (14-18) Glucose (80-115) mg/dL Calcium (8.5-10.1) mg/dL Magnesium (1.8-2.4) mg/dl Total Bilirubin (0.2-1.0) mg/dL AST (15-37) U/L ALT (16-63) U/L Alkaline Phosphatase (46-116) U/L C-Reactive Protein (<1.0) mg/dL NT-Pro-B Natriuret Pep (0-125) pg/mL Total Protein (6.4-8.2) g/dl Albumin (3.4-5.0) g/dl Globulin gm/dL Albumin/Globulin Ratio (1-2) Meds: Medications Discontinued Medications Generic Name Dose Route Start Last Admin Trade Name Freq PRN Reason Stop Dose Admin Albuterol/Ipratropium 3 ml 04/04/20 08:51 04/04/20 09:31 Duoneb 3.0-0.5 Mg/3 Ml NEB 3 ml Q4H PRN Administration Shortness Of Breath/wheezing - Radiology Interpretation Free Text/Narrative:: 65-year-old male presents to the ED with gradually worsening dyspnea over the last several months but particularly over the last week to 10 days. He was seen through the ED on March 25 and diagnosed with bilateral carcinomatosis in both lungs which appears to be lymphangitic. There was possible consolidation right upper lobe suggesting superimposed pneumonia and he was treated with a course of Zithromax which she has now completed. He uses albuterol handheld nebulizer as well as recently started on Spiriva once daily and usually the albuterol helps particularly to sleep at night. He states the last 2 days it has not helped at all. He states he is not bringing up any sputum. Denies any hemoptysis. O2 sats upon arrival in the ED here were 88% and he was placed on oxygen at 2 L/min by nasal cannula. Lungs reveal bilateral fine crackles in both bases worse on the right side as compared to the left. No supraclavicular or infraclavicular adenopathy identified no hepatomegaly. I will obtain a copy of the CT scan done 10 days ago through the ED. He will have 2 view chest x-ray done as well as routine labs this morning since he had a reported fever last evening. I now in receipt of CT scan done March 25 it reveals multifocal bilateral lung masses. Confluent nodules in the right upper lobe with or without consolidation. Nodular lymphangitic disease. There is moderate right bronchial interstitial thickening. The pleural space was unremarkable with no pneumothorax or pleural effusions. There are atherosclerotic calcifications inclusive of the coronary arteries. Heart is normal in size no pericardial effusion. Lymph nodes revealed no enlarged supraclavicular axillary mediastinal or left hilar lymph nodes seen. There is calcified granulomatous disease of the intrathoracic lymph nodes. Coincidental small hiatal hernia. There is bilateral moderate sternoclavicular arthritis ill-defined sclerosis within several ribs for example the posterior left 10th rib. Diagnosis is findings within the lungs consistent with pulmonary metastatic disease and possible lymphangitic carcinomatosis. - Re-Assessments/Exams Free Text/Narrative Re-Assessment/Exam: 04/04/20 09:14 chest x-ray done today reveals diffuse nodular carcinomatosis in all lobes but in particular the right upper lobe. There is no pleural effusion. Neck silhouette is otherwise normal. 04/04/20 09:36 White blood cell count is 9.16. The differential is 83% neutrophils on the auto differential. Hemoglobin is 16.5 with hematocrit of 49.8 suggesting some degree of hemoconcentration. Platelet counts 263,000. Sodium 137 with potassium 4.3. Chloride 1 2 with a bicarb of 26. Anion gap is 13.3. BUN is 19 with a creatinine of 1.0. GFR is greater than 60. Glucose is 111. Calcium 9.6. Magnesium normal at 2.1. Liver function normal other than slightly elevated alk phosphatase at 144. C-reactive protein 0.8 total protein is 6.9 albumin fraction 3.4. Blood gases have been done but are not yet available to me. 04/04/20 10:13 ABGs revealed a pH of 7.43 with a PCO2 of 35.8 and a PO2 of 62 bicarb 23.4. O2 sats 92.4% on room air. Therefore does not qualify for home oxygen therapy at this time. I will arrange for home nebulizer with DuoNeb to be used 3 times daily as needed usually first thing in the morning and at bedtime and [place] to help him clear his secretions and not feel so congested in his throat. He will be following up with Dr. Wilcox in the near future. 04/04/20 11:27 Vrad is over read the chest x-ray done on this fellow. They agree with innumerable pulmonary parenchymal nodules throughout lung duval bilaterally. Consolidation within the right upper lobe may represent superimposed pneumonia or confluence of the pulmonary parenchymal nodules. No pleural effusion no pneumothorax. No cardiomegaly. There is some volume loss within the right chest. Patient was afebrile and therefore is not considered to have pneumonia at this time. Departure - Departure Time of Disposition: 10:15 Disposition: Home, Self-Care 01 Condition: Fair Clinical Impression: Carcinoma, lung Qualifiers: Laterality: right Qualified Code(s): C34.91 - Malignant neoplasm of unspecified part of right bronchus or lung - Discharge Information *PRESCRIPTION DRUG MONITORING PROGRAM REVIEWED*: Not Applicable *COPY OF PRESCRIPTION DRUG MONITORING REPORT IN PATIENT DESTINEY: Not Applicable Prescriptions: Albuterol/Ipratropium [DuoNeb 3.0-0.5 MG/3 ML] 3 ml NEB Q8H PRN #90 neb PRN Reason: Lung congestion Instructions: Lung Cancer Referrals: Dionicio Robert MD [Primary Care Provider] - Forms: ED Department Discharge Additional Instructions: Evaluation in the emergency room this morning in regards to gradually worsening shortness of breath over the last several weeks. Particularly bad the last 3 nights. Chest x-ray reveals diffuse carcinoma in both lung duval which is slowly getting worse but not much worse than it was on CT scan 10 days ago. The cancer is currently involving all 5 lobes of the lungs or both sides and is very extensive. At present your oxygen level is around 92 to 94% at rest but of course would desaturate or go down with exertion into the upper 80s making you very short of breath with minimal exertion. Unfortunate this is gradually likely to progress. At present you do not qualify for home oxygen treatment but likely will within the next month or 2. Suggest vents with DuoNeb nebulizer Nebules at home with a home nebulizer machine usually first thing in the morning and at bedtime to help facilitate clearing secretions from the upper airway. You can use the DuoNeb up to every 6 hours if needed. Follow-up with Dr. Lechuga if any further problems occur. You will have to go to the [facility] and machine pecan picker a home nebulizer which is a small compressor. Sepsis Event Note (ED) - Evaluation Sepsis Screening Result: No Definite Risk - Focused Exam Vital Signs: Vital Signs Temp Pulse Resp BP Pulse Ox Pulse Ox 04/04/20 09:31 91 L 04/04/20 08:03 37.0 C 101 H 16 128/81 94 L - My Orders Last 24 Hours: My Active Orders 04/04/20 08:48 Chest 2V [CR] Stat - Assessment/Plan Last 24 Hours: My Active Orders 04/04/20 08:48 Chest 2V [CR] Stat
[2020-04-04] MEDS ORDERED: Albuterol/Ipratropium 3.0-0.5 MG/3 ML Neb Soln NEB PRN (08:51)
== END 2020-04-04 10:25 | disposition home or self-care (01) ==
LOC: JD.ED 07:39
DX: C34.91 Malignant neoplasm of unspecified part of right bronchus or lung (principal); Z88.0 Allergy status to penicillin
CPT/HCPCS: 36415; 36600; 71046; 80053; 82803; 83735; 83880; 85025; 86140; 94640; 99285-25; J7620-GY

== ENCOUNTER 2020-05-30 22:10 | Emergency (ER) | payer OTHER ==
[2020-05-30] MEDS ORDERED: Sodium Chloride 0.9% 10 ML Syringe FLUSH PRN (22:20)
[2020-05-30] MEDS ORDERED: methylPREDNISolone Sodium Succinate 125 MG/2 ML SDV IVPUSH ONE (22:21)
--- NOTE | 2020-05-30 22:49 | EDM.PDOC ---
ED HPI GENERAL MEDICAL PROBLEM - General Chief Complaint: Respiratory Problem Stated Complaint: [facility] Time Seen by Provider: 05/30/20 22:19 Source of Information: Reports: Patient, EMS History Limitations: Reports: No Limitations - History of Present Illness INITIAL COMMENTS - FREE TEXT/NARRATIVE: The patient presents by [facility] for increased shortness of breath. He says this has been going on since yesterday. He was diagnosed with lung cancer in August and he has not received treatment for it. He has been trying a holistic approach. He says he has been coughing. He did get checked for COVID yesterday. He had a quick 15 minute test through work. He has no fever or chills. He has no chest pain. He has no abdominal pain, nausea or vomiting. He has no other significant medical problems. Onset: Gradual Duration: Day(s): Severity: Moderate Improves with: Reports: None Worsens with: Reports: None Associated Symptoms: Reports: Cough, Shortness of Breath. Denies: Chest Pain, Fever/Chills, Headaches, Nausea/Vomiting - Related Data Allergies Allergy/AdvReac Type Severity Reaction Status Date / Time Penicillins Allergy Severe Hives Verified 05/30/20 22:16 Home Meds: Home Meds Albuterol [Proventil Neb Soln] 3 ml INH Q6HR PRN 01/09/20 [History] Albuterol [Ventolin HFA] 2 puff .XX Q4H PRN #1 inhaler 03/25/20 [Rx] Cholecalciferol (Vitamin D3) [Vitamin D3] 2 ml PO BID 03/25/20 [History] L.acidoph,Paracasei, B.lactis [Probiotic] 1 cap PO DAILY 03/25/20 [History] Albuterol/Ipratropium [DuoNeb 3.0-0.5 MG/3 ML] 3 ml NEB Q8H PRN #90 neb 04/04/20 [Rx] Ascorbic Acid [Vitamin C] 500 mg PO DAILY 04/04/20 [History] Past Medical History - Past Health History Medical/Surgical History: Denies Medical/Surgical History HEENT History: Reports: Impaired Vision Other HEENT History: wears glasses Respiratory History: Reports: Other (See Below) Other Respiratory History: seasonal allergies Oncologic (Cancer) History: Reports: Lung, Other (See Below) Other Oncologic History: high estrogen breast cancer - Infectious Disease History Infectious Disease History: Reports: Chicken Pox - Past Surgical History HEENT Surgical History: Reports: Naso-Sinus Surgery Social & Family History - Family History Family Medical History: No Pertinent Family History - Tobacco Use Tobacco Use Status *Q: Never Tobacco User - Caffeine Use Caffeine Use: Reports: Coffee - Living Situation & Occupation Living situation: Reports: Occupation: Employed ED ROS GENERAL - Review of Systems Review Of Systems: See Below Constitutional: Reports: No Symptoms HEENT: Reports: No Symptoms Respiratory: Reports: Shortness of Breath, Cough Cardiovascular: Reports: No Symptoms Endocrine: Reports: No Symptoms GI/Abdominal: Reports: No Symptoms : Reports: No Symptoms Musculoskeletal: Reports: No Symptoms ED EXAM, GENERAL - Physical Exam Exam: See Below Exam Limited By: No Limitations General Appearance: Alert, No Apparent Distress Ears: Normal External Exam Nose: Normal Inspection Head: Atraumatic, Normocephalic Neck: Normal Inspection Respiratory/Chest: No Respiratory Distress, Decreased Breath Sounds (Mostly on the right) Cardiovascular: Regular Rate, Rhythm, No Edema, No Murmur GI/Abdominal: Soft, Non-Tender, No Organomegaly, No Mass Back Exam: Normal Inspection Extremities: Normal Inspection #1 Interpretation EKG Date: 05/30/20 Time: 22:29 Rhythm: Other (sinus tachycardia) Rate (Beats/Min): 107 [place]: Normal P-Wave: Present QRS: Normal ST-T: Normal QT: Normal Course - Vital Signs Last Recorded V/S: Last Vital Signs Temp 96.8 F L 05/30/20 22:16 Pulse 114 H 05/30/20 22:16 Resp 32 H 05/30/20 22:16 BP 132/80 05/30/20 22:16 Pulse Ox 92 L 05/30/20 22:16 - Orders/Labs/Meds Orders: Active Orders 24 hr Category Date Time Status Cardiac Monitoring [RC] . DIRECTED Care 05/30/20 22:20 Active EKG Documentation Completion [RC] STAT Care 05/30/20 22:20 Active Oxygen Therapy [RC] PRN Care 05/30/20 22:20 Active Peripheral IV Care [RC] . DIRECTED Care 05/30/20 22:20 Active Ang Chest [CT] Stat Exams 05/30/20 22:20 Taken CULTURE BLOOD [BC] Stat Lab 05/30/20 23:50 Ordered CULTURE BLOOD [BC] Stat Lab 05/30/20 23:50 Ordered LACTIC ACID [CHEM] Stat Lab 05/30/20 23:50 Ordered Sodium Chloride 0.9% [Saline Flush] Med 05/30/20 22:20 Active 10 ml FLUSH ASDIRECTED PRN cefTRIAXone [Rocephin] 2 gm Med 05/30/20 23:50 Active Sodium Chloride 0.9% [Normal Saline] 100 ml IV ONETIME Blood Culture x2 Reflex Set [OM.PC] Stat Oth 05/30/20 23:50 Ordered Peripheral IV Insertion Adult [OM.PC] Stat Oth 05/30/20 22:20 Ordered Medication Orders Ceftriaxone Sodium 2 gm/ (Sodium Chloride) 100 mls @ 200 mls/hr IV ONETIME ONE Stop: 05/31/20 00:19 Sodium Chloride (Saline Flush) 10 ml FLUSH ASDIRECTED PRN PRN Reason: Keep Vein Open Last Admin: 05/30/20 22:30 Dose: 10 ml Documented by: BASSAM Labs: Laboratory Tests 05/30/20 05/30/20 05/30/20 Range/Units 22:32 22:40 22:40 WBC 24.21 H (4.23-9.07) K/mm3 RBC 5.04 (4.63-6.08) M/mm3 Hgb 14.2 D (13.7-17.5) gm/dl Hct 40.9 (40.1-51.0) % MCV 81.2 D (79.0-92.2) fl MCH 28.2 (25.7-32.2) pg MCHC 34.7 (32.2-35.5) g/dl RDW Std Deviation 39.0 (35.1-43.9) fL Plt Count 441 H D (163-337) K/mm3 MPV 8.2 L (9.4-12.3) fl Neut % (Auto) 90.3 H (34.0-67.9) % Lymph % (Auto) 1.3 L (21.8-53.1) % [place] % (Auto) 8.1 (5.3-12.2) % Eos % (Auto) 0 L (0.8-7.0) Baso % (Auto) 0.0 L (0.1-1.2) % Neut # (Auto) 21.84 H (1.78-5.38) K/mm3 Lymph # (Auto) 0.31 L (1.32-3.57) K/mm3 [place] # (Auto) 1.97 H (0.30-0.82) K/mm3 Eos # (Auto) 0.01 L (0.04-0.54) K/mm3 Baso # (Auto) 0.01 (0.01-0.08) K/mm3 Manual Slide Review Abnormal smear Sodium 114 L* D (136-145) mEq/L Potassium 5.0 (3.5-5.1) mEq/L Chloride 82 L D (98-107) mEq/L Carbon Dioxide 27 (21-32) mEq/L Anion Gap 10.0 (5-15) BUN 26 H (7-18) mg/dL Creatinine 1.1 (0.7-1.3) mg/dL Est Cr Clr Drug Dosing 69.68 mL/min Estimated GFR (MDRD) > 60 (>60) mL/min BUN/Creatinine Ratio 23.6 H (14-18) Glucose 140 H (80-115) mg/dL Calcium 9.7 (8.5-10.1) mg/dL Total Bilirubin 0.5 (0.2-1.0) mg/dL AST 29 (15-37) U/L ALT 39 (16-63) U/L Alkaline Phosphatase 151 H (46-116) U/L Troponin I 0.191 H* (0.00-0.056) ng/mL Total Protein 6.0 L (6.4-8.2) g/dl Albumin 2.3 L (3.4-5.0) g/dl Globulin 3.7 gm/dL Albumin/Globulin Ratio 0.6 L (1-2) SARS-CoV-2 RNA ([place]) Negative (NEGATIVE) Meds: Medications Generic Name Dose Route Start Last Admin Trade Name Freq PRN Reason Stop Dose Admin Ceftriaxone Sodium 2 gm/ 100 mls @ 200 mls/hr 05/30/20 23:50 Sodium Chloride IV 05/31/20 00:19 ONETIME ONE Sodium Chloride 10 ml 05/30/20 22:20 05/30/20 22:30 Saline Flush FLUSH 10 ml ASDIRECTED PRN Administration Keep Vein Open Discontinued Medications Generic Name Dose Route Start Last Admin Trade Name Halie PRN Reason Stop Dose Admin Methylprednisolone Sodium Succinate 125 mg 05/30/20 22:21 05/30/20 22:30 Solu-Medrol IVPUSH 05/30/20 22:22 125 mg ONETIME ONE Administration - Re-Assessments/Exams Free Text/Narrative Re-Assessment/Exam: 05/30/20 22:52 I ordered oxygen, IV saline lock, EKG, chest angio, labs and solu-medrol 125mg IV. His EKG shows a sinus tachycardia with no acute changes. 05/30/20 23:56 His WBC was elevated at 24.21. His platelets are elevated at 441. His Na is low at 114. His chloride is low at 82. His K was normal at 5. His glucose was elevated at 140. His alk phos was elevated at 151. His troponin was elevated at 0.191. His COVID [address] shows no evidence of PE or aortic dissection. 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 The consolidative densities in the right upper lobe and right lower lobe may related to progression of lymphangitic carcinomatosis versus consolidative elements of pulmonary infection/pneumonia. No cavitation/abscess. Small bilateral pleural effusions which are new. Mild cardiomegaly with right heart enlargement unchanged. Unchanged mild esophageal wall thickening suspicious for esophagitis. 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 I have ordered blood cultures, lactic acid and rocephin 2 grams IV. I feel he needs to be admitted but he is to sick for our hospital. I called [facility] and talked with Dr Amaro the hospitalist production team member and she accepted the patient. Departure - Departure Time of Disposition: 00:15 Disposition: DC/Tfer to Acute Hospital 02 Condition: Serious Clinical Impression: Hypoxia, Lung mass, Hyponatremia, Elevated troponin Pneumonia Qualifiers: Pneumonia type: due to unspecified organism Laterality: bilateral Lung location: unspecified part of lung Qualified Code(s): J18.9 - Pneumonia, unspecified organism Carcinoma, lung Qualifiers: Laterality: right Qualified Code(s): C34.91 - Malignant neoplasm of unspecified part of right bronchus or lung - Discharge Information Referrals: Dionicio Robert MD [Primary Care Provider] - Forms: ED Department Discharge Sepsis Event Note (ED) - Evaluation Sepsis Screening Result: No Definite Risk - Focused Exam Vital Signs: Vital Signs Temp Pulse Resp BP Pulse Ox 05/30/20 22:16 96.8 F L 114 H 32 H 132/80 92 L - My Orders Last 24 Hours: My Active Orders 05/30/20 22:20 Cardiac Monitoring [RC] . DIRECTED EKG Documentation Completion [RC] STAT Oxygen Therapy [RC] PRN Peripheral IV Care [RC] . DIRECTED Ang Chest [CT] Stat Sodium Chloride 0.9% [Saline Flush] 10 ml FLUSH ASDIRECTED PRN Peripheral IV Insertion Adult [OM.PC] Stat 05/30/20 23:50 CULTURE BLOOD [BC] Stat CULTURE BLOOD [BC] Stat LACTIC ACID [CHEM] Stat cefTRIAXone [Rocephin] 2 gm Sodium Chloride 0.9% [Normal Saline] 100 ml IV ONETIME Blood Culture x2 Reflex Set [OM.PC] Stat - Assessment/Plan Last 24 Hours: My Active Orders 05/30/20 22:20 Cardiac Monitoring [RC] . DIRECTED EKG Documentation Completion [RC] STAT Oxygen Therapy [RC] PRN Peripheral IV Care [RC] . DIRECTED Ang Chest [CT] Stat Sodium Chloride 0.9% [Saline Flush] 10 ml FLUSH ASDIRECTED PRN Peripheral IV Insertion Adult [OM.PC] Stat 05/30/20 23:50 CULTURE BLOOD [BC] Stat CULTURE BLOOD [BC] Stat LACTIC ACID [CHEM] Stat cefTRIAXone [Rocephin] 2 gm Sodium Chloride 0.9% [Normal Saline] 100 ml IV ONETIME Blood Culture x2 Reflex Set [OM.PC] Stat
[2020-05-30] MEDS ORDERED: cefTRIAXone 2 GM in Sodium Chloride 0.9% 100 ML IV ONE (23:50)
--- NOTE | 2020-05-31 08:33 | CT ---
CT chest Technique: Multiple axial sections were obtained from above the lung apices inferiorly through the lung bases. Intravenous contrast was utilized. Reconstructed coronal and sagittal images were obtained. Comparison: Prior CT chest of 01/09/20 and prior chest x-ray of 01/09/20. Findings: Numerous nodular densities are seen within the chest increased from prior study. Areas of consolidation are seen most prominent within both upper lungs. There is pleural effusion on the right side. Very minimal pleural effusion is seen on the left side. Thoracic aorta shows no aneurysm. No definite findings of pulmonary embolism are seen. Heart is slightly enlarged with right sided prominence. No discrete abnormality is appreciated within the visualized abdomen. Bone window settings show degenerative change within both shoulders, worse on the left side. Scattered endplate spurring noted throughout the thoracic spine. There are areas of sclerosis with the upper lumbar spine (L1 and L2) suspicious for possible metastatic osseous disease. Impression: 1. Increasing parenchymal densities on both sides of the chest. Findings presumably represent worsening lymphangitic metastasis within pulmonary nodules. Difficult to exclude superimposed pneumonias within the upper lungs versus worsening metastatic disease. 2. Small bilateral pleural effusions slightly larger on the right side. 3. Probable findings of osseous metastatic disease within the upper lumbar spine. 4. No additional acute finding is appreciated. Diagnostic code #9 I agree with preliminary report from [facility], finalized on 05/31/20, 12:38 AM [employer]
== END 2020-05-31 00:45 ==
LOC: JD.ED 22:10
DX: J18.9 Pneumonia, unspecified organism (principal); C34.91 Malignant neoplasm of unspecified part of right bronchus or lung; R09.02 Hypoxemia; E87.1 Hypo-osmolality and hyponatremia; R79.89 Other specified abnormal findings of blood chemistry; D72.829 Elevated white blood cell count, unspecified; R00.0 Tachycardia, unspecified; Z88.0 Allergy status to penicillin; Z20.828 Contact with and (suspected) exposure to other viral communicable diseases
CPT/HCPCS: 36415; 71275; 80053; 83605; 84484; 85025; 87040; 87635; 93005; 96365; 96375; 99285; J0696; J2930; J7050; 93010; 99284; U0002